=== PATIENT | female | born 1980 ===

== ENCOUNTER 2020-08-27 15:17 | Outpatient (REF) | payer OTHER, SELFPAY ==
[2020-08-27 21:38] LABS: Anion Gap 7.3 mmol/L (3-11); BUN 14 mg/dL (7-18); CO2 29.7 mmol/L (21.0-32.0); CREATININE 0.72 mg/dL (0.55-1.02); Calcium 9.2 mg/dL (8.5-10.1); Calculated LDL 116 mg/dL (<100); Chloride 104 mmol/L (98-107); Cholesterol 215 mg/dL (<200); Glucose 86 mg/dL (74-106); HDL Cholesterol 85 mg/dL (40-60); Sodium 141 mmol/L (136-145); Triglyceride 72 mg/dL (<150)
== END 2020-08-27 15:37 ==
LOC: NCHCN 15:17
PROVIDERS: Visit Provider Family Medicine
DX: Z00.00 Encounter for general adult medical examination without abnormal findings (principal); Z13.220 Encounter for screening for lipoid disorders; Z13.228 Encounter for screening for other metabolic disorders
CPT/HCPCS: 80048; 80061

== ENCOUNTER 2025-01-23 13:58 | Outpatient (REF) | payer BC, SELFPAY ==
[2025-01-23 14:39] LABS: Absolute Basophil Count 0.03 10^3/uL (0.0-0.2); Absolute Eosinophil Count 0.04 10^3/uL (0.0-0.7); Absolute Lymphocyte Count 1.33 10^3/uL (1.2-3.4); Absolute Monocyte Count 0.29 10^3/uL (0.1-0.8); Absolute Neutrophil Count 2.96 10^3/uL (1.2-6.7); Basophils % 0.6 %; Eosinophils % 0.9 %; HCT 42.2 % (36.0-46.0); HGB 14.4 g/dL (11.2-15.7); Lymphocytes % 28.6 %; MCH 30.4 pg (27.0-33.0); MCHC 34.1 % (32.0-36.0); MCV 89 fL (80-95); Monocytes % 6.2 %; Neutrophils % 63.7 %; Platelet Count 249 10^3/uL (130-400); RBC 4.73 10^6/uL (3.93-5.22); RDW 12.1 % (11.7-14.6); RDW-SD 39.7 fL; WBC 4.65 10^3/uL (4.4-10.8)
[2025-01-23 14:58] LABS: Hemoglobin A1C 5.3 % (<5.7)
[2025-01-23 15:27] LABS: ALT 19 U/L (14-59); AST 22 U/L (15-37); Albumin 4.6 g/dL (3.4-5.0); Alkaline Phosphatase 96 U/L (46-116); Anion Gap 8.4 mmol/L (3-11); BUN 9 mg/dL (7-18); Bilirubin, Total 0.5 mg/dL (0.2-1.0); CO2 27.6 mmol/L (21.0-32.0); CREATININE 0.7 mg/dL (0.55-1.02); Calcium 9.5 mg/dL (8.5-10.1); Calculated LDL 113 mg/dL (<100); Chloride 102 mmol/L (98-107); Cholesterol 216 mg/dL (<200); Estimated GFR 109.98 (mL/min/1.73m2); Glucose 89 mg/dL (74-106); HDL Cholesterol 94 mg/dL (>or=50); Potassium 3.9 mmol/L (3.5-5.1); Sodium 138 mmol/L (136-145); Total Protein 8.4 g/dL (6.4-8.2); Triglyceride 46 mg/dL (<150); Vitamin B12 312 pg/mL (193-986)
[2025-01-27 11:30] LABS: IgA 83 mg/dL (85-499); Interpretation (See Note); Tissue Transglutaminase IgA <4.0 CU (<20.0)
== END 2025-01-23 13:59 | disposition home or self-care (01) ==
LOC: NCHCN 13:58
PROVIDERS: Visit Provider Family Medicine
DX: Z13.1 Encounter for screening for diabetes mellitus (principal); Z13.220 Encounter for screening for lipoid disorders; R11.0 Nausea; R53.82 Chronic fatigue, unspecified
CPT/HCPCS: 80053; 80061; 82784; 83516; 82607; 83036; 84443; 85025

== ENCOUNTER 2025-01-29 18:52 | Outpatient (REF) | payer BC, SELFPAY ==
[2025-02-02 09:28] LABS: IgA 85 mg/dL (85-499); IgG 897 mg/dL (610-1616); IgM 146 mg/dL (35-242)
== END 2025-01-29 18:53 | disposition home or self-care (01) ==
LOC: NCHCN 18:52
PROVIDERS: Visit Provider Family Medicine
DX: D80.2 Selective deficiency of immunoglobulin A [IgA] (principal)
CPT/HCPCS: 82784